=== PATIENT | female | born 1970 | race Two or more races ===

== ENCOUNTER 2021-07-01 08:45 | Inpatient (IN) | payer OTHER ==
[~2021-07-01] VITALS: Ht 170.2 cm; Wt 80.7 kg
== END 2021-07-17 17:51 | disposition home or self-care (01) | DRG 747 ==
LOC: OB/GYN 07-02 08:45 → O/R 07-16 07:34 → OB/GYN 07-16 07:34
PROVIDERS: ADMIT Specialist; ATTEND Specialist
PROC: 0UTC0ZZ Resection of Cervix, Open Approach (ICD-10-PCS; principal; 2021-07-16 09:15)
DX: N72 Inflammatory disease of cervix uteri (principal); Z20.822 Contact with and (suspected) exposure to COVID-19